=== PATIENT | female | born 1980 | race Two or more races ===

== ENCOUNTER → 2024-11-28 | Outpatient (CLI) | payer BC, MEDICAID, SELFPAY ==
--- NOTE | 2024-11-28 | XR_ITS ---
Examination: Shoulder, left, 3 views Technique: Shoulder AP internal rotation, AP external rotation, Y view shoulder, 3 views Exam date and time : November 28, 2024, 11:20 a.m. INDICATIONS: Patient fell 3 months ago with injury to shoulder, shoulder pain FINDINGS: No shoulder fracture or dislocation No AC joint separation. IMPRESSION: No shoulder fracture or dislocation
== END | disposition home or self-care (01) ==
LOC: CDIM 10:33
PROVIDERS: PCP Physician Assistant Medical; Referring Provider Physician Assistant Medical; Visit Provider Physician Assistant Medical
DX: M25.512 Pain in left shoulder (principal); S49.92XS Unspecified injury of left shoulder and upper arm, sequela; W19.XXXS Unspecified fall, sequela
CPT/HCPCS: 73030